=== PATIENT | male | born 1975 | race Caucasian/White ===

== ENCOUNTER 2017-01-16 19:23 | Emergency (ER) | payer BC ==
[2017-01-16 19:30] VITALS: BP 148/100; PULSE 87; RESP 18; TEMP 97.9; O2SAT 95
[2017-01-16] MEDS ORDERED: Fluorescein 1 mg Ophthalmic Strip OD ONE (20:15)
[2017-01-16] MEDS ORDERED: Tetracaine 0.5% Ophth 2 ML BOTTLE OD ONE (20:15)
[2017-01-16] MEDS ORDERED: Tetracaine 0.5% Ophth (OR ONLY) ONE (20:17)
[2017-01-16] MEDS ORDERED: Fluorescein 1 mg Ophthalmic Strip ONE (20:17)
[2017-01-16] MEDS ORDERED: Ofloxacin 0.3% Ophth Soln OD STA (20:49)
--- NOTE | 2017-01-16 20:55 | C.PDOC ---
History Of Present Illness 41 year old male presents to the ED with complaints of eye itching, redness, and pain. Eye irritation began approximately 3 days prior to arrival but worsened at 5 or 6pm today. Patient has been using antibiotic eyes drops from a previous prescription with no relief. Patient denies any other complaints at this time. Time Seen by Provider: 01/16/17 19:33 Chief Complaint (Nursing): Eye Problem History Per: Patient History/Exam Limitations: no limitations Onset/Duration Of Symptoms: Days Current Symptoms Are (Timing): Worse Quality: "Pain", Other (itching) Wears Contact Lens?: No Past Medical History Reviewed: Historical Data, Nursing Documentation, Vital Signs Vital Signs: Last Vital Signs Temp 97.9 F 01/16/17 19:26 Pulse 87 01/16/17 19:26 Resp 18 01/16/17 19:26 BP 148/100 H 01/16/17 19:26 Pulse Ox 95 01/16/17 21:03 - Medical History PMH: Diabetes, HTN, Hypercholesterolemia Family History: States: Unknown Family Hx - Social History Hx Tobacco Use: No Hx Alcohol Use: Yes Hx Substance Use: No - Immunization History Hx Tetanus Toxoid Vaccination: Yes Hx Influenza Vaccination: Yes Hx Pneumococcal Vaccination: Yes Review Of Systems Constitutional: Negative for: Fever, Chills Eyes: Positive for: Pain, Redness. Negative for: Vision Change ENT: Negative for: Ear Pain, Nose Pain Gastrointestinal: Negative for: Nausea, Vomiting, Diarrhea Physical Exam - Physical Exam Appears: Non-toxic Skin: Warm, Dry Head: Atraumatic, Normacephalic Eye(s): bilateral: PERRL, EOMI, right: Eyelid Inflammation (minimally ), Other ( positive injection to lateral right eye. No foreign body on lid eversion ) Oral Mucosa: Moist Neck: Normal ROM, Supple Extremity: Normal ROM, No Tenderness, No Swelling Neurological/Psych: Oriented x3, Normal Motor, Normal Sensation Gait: Steady ED Course And Treatment O2 Sat by Pulse Oximetry: 95 (on RA) Pulse Ox Interpretation: Normal Medical Decision Making Medical Decision Making: Fluoroscein test shows (+) uptake at the 9 o'clock position. Ofloxacin drops ordered. Disposition - Disposition Referrals: Dwain Mejia MD [Staff Provider] - Disposition: HOME/ ROUTINE Disposition Time: 22:00 Condition: GOOD Additional Instructions: Apply the eye drops to the eyes every 2 hours for the first 2 days. Then 4 times per day for another 5 days. YOU MUST FOLLOW UP WITH THE EYE DOCTOR WITHIN 1-2 DAYS WITHOUT FAIL. RETURN IF WORSENED Prescriptions: Ofloxacin Ophth 0.3% [Ocuflox Ophth 0.3%] 1 drop OD Q2 #1 bottle Instructions: Corneal Abrasion (ED) - Clinical Impression Clinical Impression: Corneal abrasion - Scribe Statement The provider has reviewed the documentation as recorded by the Scribspeedy Mccrary All medical record entries made by the Albertibspeedy were at my direction and personally dictated by me. I have reviewed the chart and agree that the record accurately reflects my personal performance of the history, physical exam, medical decision making, and the department course for this patient. I have also personally directed, reviewed, and agree with the discharge instructions and disposition.
== END 2017-01-16 21:21 | disposition home or self-care (01) ==
LOC: C.ER 19:23
DX: S05.01XA Injury of conjunctiva and corneal abrasion without foreign body, right eye, initial encounter (principal); X58.XXXA Exposure to other specified factors, initial encounter; Y93.9 Activity, unspecified; Y92.9 Unspecified place or not applicable

== ENCOUNTER 2017-04-07 22:55 | Emergency (ER) | payer BC ==
[2017-04-08] MEDS ORDERED: Albuterol-Ipratrop 3 mg / 0.5 (3 ml) UD ONE (00:18)
[2017-04-08] MEDS ORDERED: Naproxen 550 mg Tab PO STA (00:19)
[2017-04-08] MEDS ORDERED: Promethazine/Cod 6.25mg-10mg/5ml Syr UD PO STA (00:20)
[2017-04-08] MEDS: Albuterol-Ipratrop 3 mg / 0.5 (3 ml) UD IH SCH ×2 (00:22→00:45)
[2017-04-08] MEDS ORDERED: Naproxen 550 mg Tab PO ONE (00:22)
[2017-04-08] MEDS ORDERED: Promethazine/Cod 6.25mg-10mg/5ml Syr UD ONE (00:26)
[2017-04-08 01:24] VITALS: BP 138/76; PULSE 99; RESP 22; TEMP 98.7
[2017-04-08 01:28] VITALS: O2SAT 96
--- NOTE | 2017-04-08 01:28 | C.PDOC ---
History Of Present Illness Patient is a 41 year old male who presents to the ER with a complaint of a dry cough, fatigue, fever and body aches for the past 3 days, associated with discomfort to his lower rib cage area. Patient reports taking dayquil and peptobismol with no relief. Denies sick contact, recent travel or SOB. Time Seen by Provider: 04/07/17 23:33 Chief Complaint (Nursing): Flu-like Symptoms History Per: Patient History/Exam Limitations: no limitations Onset/Duration Of Symptoms: Days (3) Current Symptoms Are (Timing): Still Present Location Of Pain: Diffuse Myalgias Sick Contacts (Context): None Associated Symptoms: Cough, Myalgias, Other (Fatigue). denies: Sputum Ear Symptoms: Bilateral: None Recent travel outside of the [place]: No Past Medical History Reviewed: Historical Data, Nursing Documentation, Vital Signs Vital Signs: Last Vital Signs Temp 98.7 F 04/08/17 01:21 Pulse 99 H 04/08/17 01:21 Resp 22 04/08/17 01:21 BP 138/76 04/08/17 01:21 Pulse Ox 96 04/08/17 02:44 - Medical History PMH: Asthma (LAST EPISODE AT 15 YRS AGO), Diabetes (MEDS), HTN, Hypercholesterolemia (2 MEDS) Surgical History: No Surg Hx Family History: States: Unknown Family Hx - Social History Hx Tobacco Use: Yes Hx Alcohol Use: Yes Hx Substance Use: No - Immunization History Hx Tetanus Toxoid Vaccination: No Hx Influenza Vaccination: No Hx Pneumococcal Vaccination: No Review Of Systems Constitutional: Positive for: Fever, Other (Fatigue) Respiratory: Negative for: Shortness of Breath Musculoskeletal: Positive for: Other (Body aches. Lower rib cage discomfort.) Physical Exam - Physical Exam Appears: Non-toxic Skin: Normal Color, Warm, Dry Head: Atraumatic, Normacephalic Oral Mucosa: Moist Throat: Normal, No Erythema, No Exudate Neck: Normal, Supple Chest: Symmetrical, No Tenderness Cardiovascular: Rhythm Regular, No Murmur Respiratory: No Rales, No Rhonchi, Wheezing (Scattered expiratory) Gastrointestinal/Abdominal: Soft, No Tenderness Neurological/Psych: Oriented x3, Normal Speech, Normal Cognition ED Course And Treatment O2 Sat by Pulse Oximetry: 96 (Room air) Pulse Ox Interpretation: Normal - Radiology CXR: Interpreted by Me, Viewed By Me CXR Interpretation: Yes: No Acute Disease. No: Infiltrates Progress Note: CXR ordered. Anaprox, prednisone, nebulizer treatment and promethazine administered. Reassessment Condition: Improved Disposition Counseled Patient/Family Regarding: Diagnosis, Need For Followup, Rx Given - Disposition Referrals: Fabien Reynolds MD [Medical Doctor] - Disposition: HOME/ ROUTINE Disposition Time: 01:20 Condition: STABLE Additional Instructions: Please follow up with PMD Increase PO fluids Return to ER if worse Prescriptions: Azithromycin [Zithromax] 250 mg PO DAILY #6 tab Ibuprofen [Motrin Tab] 800 mg PO QID #20 tab predniSONE [Prednisone] 40 mg PO DAILY #10 tab Promethazine/Codeine [Codeine/Promethazine 10 MG/5 Ml-6.25 MG/5 Ml] 5 ml PO TID #100 ml Instructions: Acute Bronchitis (ED) - Clinical Impression Clinical Impression: Bronchitis - Scribe Statement The provider has reviewed the documentation as recorded by the Scribspeedy Long All medical record entries made by the Albertibspeedy were at my direction and personally dictated by me. I have reviewed the chart and agree that the record accurately reflects my personal performance of the history, physical exam, medical decision making, and the department course for this patient. I have also personally directed, reviewed, and agree with the discharge instructions and disposition.
--- NOTE | 2017-04-08 08:20 | RAD ---
HISTORY: cough, fever COMPARISON: No prior. TECHNIQUE: Chest PA and lateral FINDINGS: LUNGS: No active pulmonary disease. Shallow lung volumes PLEURA: No significant pleural effusion identified. No pneumothorax apparent. CARDIOVASCULAR: Normal. OSSEOUS STRUCTURES: No significant abnormalities. VISUALIZED UPPER ABDOMEN: Normal. OTHER FINDINGS: None. IMPRESSION: No active disease. Specifically no infiltrate
== END 2017-04-08 01:39 | disposition home or self-care (01) ==
LOC: C.ER 22:55
DX: J40 Bronchitis, not specified as acute or chronic (principal)

== ENCOUNTER 2017-11-01 08:39 | Emergency (ER) | payer BC ==
[2017-11-01 09:20] VITALS: BP 167/99; PULSE 84; RESP 18; TEMP 98.4; O2SAT 95
--- NOTE | 2017-11-01 09:43 | C.PDOC ---
History Of Present Illness SORE THROAT SINCE YEST. NO FEVER. NO OTHER ASSOC SX. LIMITED IMPROVE W MOTRIN 400 MG @ 0300 EXAM NONTOXIC HEENT +SCANT EXUDATE R TONSIL NO SWELL, ERYTHEMA. UVULA MIDLINE. NO STRIDOR, DROOL +R SUBMAND NODE W MIN LOCAL TEND, MOBILE SUPPLE Time Seen by Provider: 11/01/17 09:36 Chief Complaint (Nursing): ENT Problem History Per: Patient History/Exam Limitations: no limitations Onset/Duration Of Symptoms: Days (1) Current Symptoms Are (Timing): Still Present Past Medical History Reviewed: Historical Data, Nursing Documentation, Vital Signs Vital Signs: Last Vital Signs Temp 98.4 F 11/01/17 09:17 Pulse 84 11/01/17 09:17 Resp 18 11/01/17 09:17 BP 167/99 H 11/01/17 09:17 Pulse Ox 95 11/01/17 09:43 - Medical History PMH: Asthma (LAST EPISODE AT 15 YRS AGO), Diabetes (MEDS), HTN, Hypercholesterolemia (2 MEDS) Family History: States: No Known Family Hx - Social History Hx Tobacco Use: Yes Hx Alcohol Use: Yes Hx Substance Use: No - Immunization History Hx Tetanus Toxoid Vaccination: No Hx Influenza Vaccination: No Hx Pneumococcal Vaccination: No Review Of Systems Except As Marked, All Systems Reviewed And Found Negative. Constitutional: Negative for: Fever ENT: Positive for: Throat Pain (sore throat) Cardiovascular: Negative for: Chest Pain Respiratory: Negative for: Cough Gastrointestinal: Negative for: Vomiting Physical Exam - Physical Exam Appears: Non-toxic, No Acute Distress Skin: Warm, Dry, No Rash Head: Atraumatic, Normacephalic Eye(s): bilateral: Normal Inspection, PERRL, EOMI Ear(s): Bilateral: Normal Oral Mucosa: Moist Throat: No Erythema, Exudate (scant exudate to the right tonsil), No Drooling, Other (No swelling. Uvula midline.) Neck: Normal, Normal ROM, Supple Lymphatic: Other (right submandibular node with minimal tenderness, mobile) Respiratory: Normal Breath Sounds, No Rales, No Rhonchi, No Stridor, No Wheezing Extremity: Normal ROM Neurological/Psych: Oriented x3, Normal Speech, Normal Motor ED Course And Treatment O2 Sat by Pulse Oximetry: 95 (RA) Pulse Ox Interpretation: Normal Medical Decision Making Medical Decision Making: PLAN: * Decadron IM * Toradol IM Disposition Counseled Patient/Family Regarding: Diagnosis, Need For Followup - Disposition Referrals: YOUR,PMD [Other] Disposition: HOME/ ROUTINE Disposition Time: 09:42 Condition: IMPROVED Additional Instructions: TAKE MOTRIN 4 TAB EVERY 6-8 HOURS. WARM SALT WATER GARGLES FOR PAIN AND IRRITATION. Instructions: Pharyngitis (ED) Forms: [employer] (Greek), Work Excuse - Clinical Impression Clinical Impression: Pharyngitis - Scribe Statement The provider has reviewed the documentation as recorded by the Ani Hanson Provider Attestation: All medical record entries made by the Ani were at my direction and personally dictated by me. I have reviewed the chart and agree that the record accurately reflects my personal performance of the history, physical exam, medical decision making, and the department course for this patient. I have also personally directed, reviewed, and agree with the discharge instructions and disposition.
== END 2017-11-01 10:00 | disposition home or self-care (01) ==
LOC: C.ER 08:39
DX: J02.9 Acute pharyngitis, unspecified (principal); Z87.891 Personal history of nicotine dependence
CPT/HCPCS: 96372; 99282; J1100; J1885